=== PATIENT | female | born 1965 | race Caucasian/White ===

== ENCOUNTER → 2016-11-13 | Outpatient (CLI) | payer BC ==
--- NOTE | 2016-11-13 08:08 | CT ---
EXAMINATION TYPE: CT cervical spine wo con DATE OF EXAM: 11/13/2016 COMPARISON: Cervical spine radiographs dated 09/07/2009 HISTORY: Cervical radiculopathy on the right side for 2 months with no known injury and history of fu vinay CT DLP: 684.6 mGycm. Automated Exposure Control for Dose Reduction was Utilized. TECHNIQUE: CT scan of the cervical spine is obtained without contrast, axial images are obtained, sa gittal and coronal reformatted images are also reviewed. FINDINGS: Anterior cervical fusion has been performed of C5-7 with subsequent osseous fusion of the i ntervertebral disc spaces and disc space are seen. Heterotopic ossification is seen posterior to the spinous processes at this level. Few protuberant osteophytes project posteriorly at these levels mild ly narrow the spinal canal. Multilevel facet arthropathy and uncovertebral hypertrophy are seen resulting in mild left neural for aminal narrowing at C3-C4 and bilateral mild neural foraminal narrowing at C5-C6. The remaining neura l foramen appear patent. Small central disc osteophyte complex is seen at C2-C3 without spinal canal stenosis. Cervical spine is visualized in its entirety from C1 through upper thoracic levels, demonst rates satisfactory alignment without evidence of acute fracture or dislocation. Prevertebral soft ti ssue appears within normal limits. The C1-C2 articulation is within normal limits on the coronal apolinar ges. Thyroid gland is felt within normal limits. Visualized lung apices are clear. IMPRESSION: 1. Postsurgical change of C5-7 with protuberant posterior osteophytes creating mild spinal canal sten osis at these levels. 2. Multilevel degenerative disc disease, uncovertebral hypertrophy and facet arthropathy resulting in mild left neural foraminal narrowing at C3-C4 and bilateral mild neural foraminal narrowing at C5-C6 . 3.There is no acute fracture or dislocation evident in the cervical spine.
== END | disposition home or self-care (01) ==
LOC: RADCTMAIN 07:33
PROVIDERS: ATTEND Family Medicine
DX: M48.02 Spinal stenosis, cervical region (principal); M50.10 Cervical disc disorder with radiculopathy, unspecified cervical region; M46.82 Other specified inflammatory spondylopathies, cervical region; M99.71 Connective tissue and disc stenosis of intervertebral foramina of cervical region; M47.22 Other spondylosis with radiculopathy, cervical region; Z98.890 Other specified postprocedural states
CPT/HCPCS: 72125

== ENCOUNTER 2016-12-04 05:54 | Day surgery (SDC) | payer BC ==
[2016-12-01 13:16] VITALS: BMI 31.6
[~2016-12-04 05:54] MED LIST: DEXAMETHASONE SOD PHOSPHATE 10 MG/ML 1 ML VIAL IV ONE; LACTATED RINGERS 1,000 ML IV SCH; MIDAZOLAM 2 MG/2 ML VIAL IV PRN; ONDANSETRON 4 MG/2 ML VIAL IVP ONE; SCOPOLAMINE 1.5MG/72HR PATCH TRANSDERM ONE; ceFAZolin 2 GM in SODIUM CHLORIDE 0.9% 100 ML IVPB ONE
[2016-12-04] MEDS ORDERED: LIDOCAINE 1% 20 ML VIAL (10MG/ML) FOR IV START INTRADERMA ONE (06:47)
[2016-12-04] MEDS ORDERED: fentaNYL (PF) 50 MCG/ML 2 ML AMP ONE (07:46)
[2016-12-04] MEDS ORDERED: MIDAZOLAM 2 MG/2 ML VIAL ONE (07:46)
[2016-12-04] MEDS ORDERED: GLYCOPYRROLATE 0.2 MG/ML 2 ML VIAL ONE (07:46)
[2016-12-04] MEDS ORDERED: ROCURONIUM BROMIDE 10 MG/ML 10 ML VIAL IV ONE (07:46)
[2016-12-04] MEDS ORDERED: PROPOFOL 10 MG/ML 20 ML VIAL IV ONE (07:46)
[2016-12-04] MEDS ORDERED: ePHEDrine SULFATE/0.9% NACL/PF 50 MG/5 ML SYRINGE IV ONE (07:46)
[2016-12-04] MEDS ORDERED: NEOSTIGMINE 1 MG/ML 10 ML VIAL ONE (07:46)
[2016-12-04] MEDS ORDERED: SUCCINYLCHOLINE CHLORIDE 100 MG/5 ML SYR IV ONE (07:46)
[2016-12-04] MEDS ORDERED: ceFAZolin 1,000 MG in SODIUM CHLORIDE 0.9% 1,000 ML IRRIGATION ONE (08:09)
--- NOTE | 2016-12-04 09:17 | FL ---
EXAMINATION TYPE: FL guidance operating room, XR ankle limited LT DATE OF EXAM: 12/04/2016 CLINICAL HISTORY: Left ankle fracture. TECHNIQUE: Fluoroscopy. Intraoperative limited views left ankle COMPARISON: None. FINDINGS: Fluoroscopic guidance was provided during open reduction internal fixation procedure perfo rmed by Dr. Quinn. A total of 17 seconds of fluoroscopic time was utilized during the procedure and four spot intraoperative images are acquired. Images acquired show placement of lateral fixating plate with multiple screws and additional fixating screw through fracture deformity lateral malleolus. Satisfactory alignment is seen on intraoperative images provided after reduction and fixation. IMPRESSION: As Above.
[2016-12-04] MEDS: HYDROmorphone 0.5 MG/0.5 ML SYRINGE IVP PRN ×4 (09:20→09:40)
[2016-12-04 09:29] VITALS: TEMP 97.4
[2016-12-04] MEDS ORDERED: ONDANSETRON 4 MG/2 ML VIAL IVP ONE (09:38)
[2016-12-04] MEDS ORDERED: KETOROLAC 30 MG/ML 1 ML VIAL IVP ONE (09:39)
[2016-12-04] MEDS ORDERED: HYDROcodone/APAP 7.5-325MG 1 EACH TAB PO ONE (11:10)
[2016-12-04 11:40] VITALS: BP 122/79; PULSE 69; RESP 18
--- NOTE | 2016-12-04 12:26 | P.OP ---
Date of Procedure: 12/04/16 Procedure(s) Performed: left ankle eua and orif distal fibula fracture arthrex 1 interfrag screw 4 distal locking screws 3 proximal 3.5 cortical screws no comp ebl 5 cc tourniquet 35 min PREOPERATIVE DIAGNOSES: Left ankle lateral malleolus fracture, Ennis B bimalleolar equivalent fracture POSTOPERATIVE DIAGNOSES: Left ankle lateral malleolus fracture, Ennis B bimalleolar equivalent PROCEDURES PERFORMED: 1. Left ankle lateral malleolus fracture open reduction and internal fixation 2. 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 TOURNIQUET: approximately 30 minutes DISPOSITION: To post-anesthesia care unit INDICATIONS: The patient is a 51 year old female with a history of left ankle fracture approximately 12 ago, who presents to the operating room today for examination of the ankle under anesthesia with manipulation and possible fixation of ankle fracture. The fracture appears to be a bimalleolar equivalent fracture, with likely rupture of the deltoid ligament (or small evulsion ciara of medial malleolus) and a fracture of the lateral malleolus that is high enough to produce talar instability. I have discussed these issues with the patient, who wishes to proceed with the operative plan. I have explained the details of this surgery thoroughly and also explained the potential risks and complications. These are inclusive of, but not limited to: bleeding, infection, scarring, discomfort, blood vessel and nerve damage, stiffness, weakness, need for further surgery, failure to relieve symptoms, persistence or worsening of problems, , and other risks. The patient is aware of these risks and agrees to proceed with surgery. The consent form has been signed. PROCEDURE: After appropriate consent was obtained, the patient was taken to the operating room and placed supine on the operating table. General anesthesia was initiated. The left ankle was examined and manipulated under fluoroscopic examination with a mini-C-arm device. The ankle was noted to be unstable, as evidenced by lateral talar shift of approximately 3-4 mm with external rotation force on the foot. The lateral malleolus fracture was also noted to be displaced by 4-5 mm on the lateral view, especially. The limb was prepped and draped in the usual aseptic fashion with ChloraPrep, and the patient was given IV antibiotics. The tourniquet was then inflated to 350 mmHg after careful exsanguination of the limb. Time out was called, confirming patient identity, side, procedure, and administration of antibiotics. Incision was created laterally, centered over the fracture site, for a length of approximately 4 inches. The incision was carried down through skin and into subcutaneous tissues, and blunt dissection then proceeded down to fascia. Fascia was split in line with the incision and the peroneal muscles were retracted posteriorly. The fracture site was exposed with subperiosteal dissection for as much exposure of the bone as was necessary. Fracture hematoma was evacuated and the interior of the fracture site was meticulously cleansed with irrigation and manual extraction of organizing hematoma and bone debris. The fracture was minimally comminuted and oblique in orientation. The fracture was mobilized using a evangelista elevator and reduction was accomplished using a bone clamp, which was also used to secure the fracture. Anatomic reduction was accomplished. An interfragmentary screw, anterior to posterior, was placed using lag technique. Next, a precontoured fibular plate from [employer] was selected for size and side. The proximal holes were filled with 3 fully threaded 3.5 mm cortical screws with bicortical purchase. Distal holes were filled with 4 2.7 mm locking screws. No evidence of joint penetration on the mini-C-arm views was noted. The fracture was noted to be in anatomic position and stress testing under C- arm imaging showed no significant migration, shift, or tilt of the talus with external rotation stress, hindfoot inversion or eversion. Screw lengths were noted to be appropriate and the incision was then irrigated thoroughly using normal saline. Tourniquet was deflated and hemostasis was obtained using electrocautery. Fascial closure was performed with 0-Vicryl suture, subcutaneous closure with 2-0 Vicryl suture. Skin was closed with carlos. Sterile dressing was applied and well padded, well molded short leg splint was applied with the ankle in neutral. Patient tolerated the procedure well and taken to recovery room in stable condition. Sponge and needle counts were correct.
== END 2016-12-04 11:56 | disposition home or self-care (01) ==
LOC: OR 05:54
PROVIDERS: ATTEND Orthopaedic Surgery
DX: S82.62XA Displaced fracture of lateral malleolus of left fibula, initial encounter for closed fracture (principal); M25.372 Other instability, left ankle; W01.0XXA Fall on same level from slipping, tripping and stumbling without subsequent striking against object, initial encounter; I10 Essential (primary) hypertension; F41.9 Anxiety disorder, unspecified; F17.200 Nicotine dependence, unspecified, uncomplicated; Z79.891 Long term (current) use of opiate analgesic; Z79.899 Other long term (current) drug therapy
CPT/HCPCS: 27792; 81025; 73600; C1713; J2250; J1100; J2710; J0690 ×2; J2405; J3010; J1885; J0330; J2704; J1170

== ENCOUNTER → 2017-07-29 | Outpatient (CLI) | payer BC ==
--- NOTE | 2017-08-02 10:07 | MM ---
Reason for exam: screening (asymptomatic). Physical Findings: A clinical breast exam by your physician is recommended on an annual basis and results should be correlated with mammographic findings. MG 3D Screening Mammo W/Cad Bilateral CC and MLO view(s) were taken. No prior studies available for comparison. There are multiple bilateral mammographic masses that are round/oval and well circumscribed in the upper outer quadrants without prior mammogram ultrasound will be performed to ensure cystic nature. ASSESSMENT: Incomplete: need additional imaging evaluation, BI-RAD 0 RECOMMENDATION: Ultrasound of both breasts. [facility] will attempt to contact patient to return for ultrasound.
== END | disposition home or self-care (01) ==
LOC: RADMAMWWP 07:52
PROVIDERS: ATTEND Family Medicine
DX: Z12.31 Encounter for screening mammogram for malignant neoplasm of breast (principal)
CPT/HCPCS: 77063; 77067

== ENCOUNTER → 2017-08-17 | Outpatient (CLI) | payer BC ==
--- NOTE | 2017-08-17 09:01 | USB ---
Reason for exam: additional evaluation requested from abnormal screening. Physical Findings: Nurse did not find any significant physical abnormalities on exam. US Breast Workup Limited BJ Right limited breast ultrasound including focal area of concern, retroareolar and axilla demonstrates ductal ectasia at 9 o'clock and 10 o'clock and a 0.6 x 0.4 x 0.3cm oval, irregular, complex cystic lesion at 11 o'clock. Left limited breast ultrasound including focal area of concern, retroareolar and axilla demonstrates ductal ectasia at 3 o'clock, a 0.4 x 0.3 x 0.2cm oval, cystic lesion at 2 o'clock and a 1.1 x 0.8 x 0.5cm oval, hypoechoic lesion at 3-3:30 for which a biopsy is recommended. These results were verbally communicated with the patient and result sheet given to the patient on 08/17/17. ASSESSMENT: Suspicious, BI-RAD 4 RECOMMENDATION: Ultrasound core biopsy of the left breast. Called with mammographic findings and has scheduled an appointment for the patient for 08/19/17 at 8:[address] Soliz. PRELIMINARY REPORT CALLED AND FAXED TO DR. SOLIZ ON 08/17/17.
== END | disposition home or self-care (01) ==
LOC: RADUSWWP 07:01
PROVIDERS: ATTEND Family Medicine
DX: R92.8 Other abnormal and inconclusive findings on diagnostic imaging of breast (principal)

== ENCOUNTER → 2017-09-13 | Day surgery (SDC) | payer BC ==
[2017-09-13 11:29] VITALS: RESP 16; BMI 35.4
[2017-09-13 13:16] VITALS: BP 152/87; PULSE 78; TEMP 98.1
--- NOTE | 2017-09-13 15:04 | USB ---
EXAMINATION TYPE: US biopsy breast VAD LT, Postprocedure MG diagnostic mammo LT wo CAD DATE OF EXAM: 09/13/2017 CLINICAL HISTORY: 52-year-old female R92.8 abnormal mammogram. TECHNIQUE: Ultrasound guided core biopsy of the left breast. COMPARISON: 08/17/2017 and 07/29/2017 FINDINGS: The procedure of ultrasound guided core biopsy was explained to the patient. Benefits, alternatives, and risks were discussed. An informed consent was then obtained. The patient was placed in supine positioning for imaging and for the procedure. The 3:00 ovoid lesion was identified measuring 1.2 x 0.6 cm. The overlying skin was prepped and draped in usual sterile fashion. Lidocaine buffered with bicarbonate was used as anesthetic into the skin and subcutaneous tissue up to area of concern in the left breast. Under ultrasound guidance, a 13-gauge assisted mammotome Elite biopsy gun device was used to obtain 6 core samples. Following this, a ribbon clip was left in lesion. The patient tolerated the procedure well without any immediate complication. The patient was kept in the radiology department for short stay after the procedure and then discharged home in stable condition. Post procedure mammogram shows ribbon clip in appropriate position at the 2-3 o' clock site of previously seen mammographic mass. IMPRESSION: Successful, uncomplicated ultrasound guided core biopsy of area of concern in the left breast, full pathology results to follow. Benign etiology is favored. Pathology Results: Benign BREAST, LEFT, 3:00, ULTRASOUND GUIDED CORE BIOPSY: Fibroadenoma. Background fibrocystic changes including cysts and apocrine metaplasia. Recommendation Follow up ultrasound of the left breast in 6 months. SAMUEL
== END | disposition home or self-care (01) ==
LOC: RADUSWWP 11:02
PROVIDERS: ATTEND Surgery Plastic and Reconstructive Surgery
DX: D24.2 Benign neoplasm of left breast (principal); N60.02 Solitary cyst of left breast; N60.82 Other benign mammary dysplasias of left breast
CPT/HCPCS: 19083; 88305; 77065; A4648; J2001

== ENCOUNTER → 2020-01-29 | Outpatient (CLI) | payer OTHER ==
--- NOTE | 2020-01-29 09:56 | MM ---
Reason for exam: additional evaluation requested from prior study. Last mammogram was performed 2 years and 4 months ago. History: Patient is nulliparous. Benign US biopsy breast VAD LT of the left breast, September 13, 2017. Took other hormone for 1 year 1 month. Physical Findings: Nurse did not find any significant physical abnormalities on exam. MG 3D Diag Mammo W/Cad JB Bilateral CC and MLO view(s) were taken. Prior study comparison: September 13, 2017, left breast MG diagnostic mammo LT wo CAD. July 29, 2017, bilateral MG 3d screening mammo w/cad. There are scattered fibroglandular densities. Previous mammotome biopsy in the left breast. There is chronic nodularity bilaterally. Lateral anterior asymmetric density is more defined. These results were verbally communicated with the patient and result sheet given to the patient on 01/29/20. ASSESSMENT: Incomplete: need additional imaging evaluation, BI-RAD 0 RECOMMENDATION: Ultrasound of the right breast. (8-12 o'clock)
--- NOTE | 2020-01-29 09:58 | USB ---
Reason for exam: additional evaluation requested from abnormal screening. History: Patient is nulliparous. Benign US biopsy breast VAD LT of the left breast, September 13, 2017. Took other hormone for 1 year 1 month. US Breast Limited RT Right limited breast ultrasound including focal area of concern, retroareolar and axilla demonstrates a 0.4 x 0.3 x 0.4cm cystic lesion at 11 o'clock. Some scattered duct ectasia also noted. 6 month follow up mammogram recommended. Scanned 8-12 o'clock. These results were verbally communicated with the patient and result sheet given to the patient on 01/29/20. ASSESSMENT: Probably benign, BI-RAD 3 RECOMMENDATION: Follow-up diagnostic mammogram of the right breast in 6 months.
== END | disposition home or self-care (01) ==
LOC: RADMAMWWP 07:15
PROVIDERS: ATTEND Family Medicine
DX: R92.8 Other abnormal and inconclusive findings on diagnostic imaging of breast (principal)
CPT/HCPCS: 77066; 76642; G0279; 77062

== ENCOUNTER → 2021-05-02 | Outpatient (CLI) | payer OTHER ==
--- NOTE | 2021-05-02 15:10 | MM ---
Reason for exam: additional evaluation requested from prior study. Last mammogram was performed 1 year and 3 months ago. History: Patient is postmenopausal and is nulliparous. Benign US biopsy breast VAD LT of the left breast, September 13, 2017. Took other hormone for 1 year 1 month. Physical Findings: A clinical breast exam by your physician is recommended on an annual basis and results should be correlated with mammographic findings. MG 3D Diag Mammo W/Cad BJ Bilateral CC and MLO view(s) were taken. Prior study comparison: January 29, 2020, bilateral MG 3d diag mammo w/cad BJ. September 13, 2017, left breast MG diagnostic mammo LT wo CAD. The breast tissue is heterogeneously dense. This may lower the sensitivity of mammography. There is chronic nodularity bilaterally. There is no dominant lesion. No significant new findings when compared with previous films. These results were verbally communicated with the patient and result sheet given to the patient on 05/02/21. ASSESSMENT: Benign, BI-RAD 2 RECOMMENDATION: Routine screening mammogram of both breasts in 1 year.
== END | disposition home or self-care (01) ==
LOC: RADMAMWWP 14:17
PROVIDERS: ATTEND Family Medicine
DX: R92.8 Other abnormal and inconclusive findings on diagnostic imaging of breast (principal); Z78.0 Asymptomatic menopausal state
CPT/HCPCS: 77066; G0279; 77062

== ENCOUNTER → 2024-06-23 | Outpatient (CLI) | payer OTHER ==
--- NOTE | 2024-06-26 07:29 | MM ---
Reason for Exam: Screening (asymptomatic). Last mammogram was performed 3 year(s) and 1 month(s) ago. Patient History: Menarche at age 11. Patient has no children. Postmenopausal. 09/13/2017, Benign Core Biopsy on the left side. Risk Values: Leonor 5 year model risk: 1.9%. NCI Lifetime model risk: 11.1%. Prior Study Comparison: 09/13/2017 Left Diagnostic Mammogram, [facility]. 01/29/2020 Bilateral Diagnostic Mammogram, [facility]. 05/02/2021 Bilateral Diagnostic Mammogram, [facility]. Tissue Density: The breasts are heterogeneously dense, which may obscure small masses. Findings: Analyzed By CAD. There are loosely grouped benign-appearing round and linear calcifications in the right breast redemonstrated. Mammotome biopsy clip in the left breast is again seen. No suspicious new mass or distortion in either breast. Overall Assessment: Benign, BI-RAD 2 Management: Screening Mammogram of both breasts in 1 year. . Patient should continue monthly self-breast exams. A clinical breast exam by your physician is recommended on an annual basis. This exam should not preclude additional follow-up of suspicious palpable abnormalities. Note on Leonor scores and lifetime risk: 1. A Leonor score greater than 3% is considered moderate risk. If this is the case, consider specialist referral to assess eligibility for a risk reducing agent. 2. If overall lifetime risk for the development of breast cancer is 20% or higher, the patient may qualify for future screening with alternating mammogram and breast MRI. [facility], , 06/26/2024 7:25 AM. Electronically signed and approved by: Joss Mondragon M.D.
== END | disposition home or self-care (01) ==
LOC: RADMAMWWP 15:38
PROVIDERS: ATTEND Family Medicine
DX: Z12.31 Encounter for screening mammogram for malignant neoplasm of breast (principal); R92.333 Mammographic heterogeneous density, bilateral breasts; R92.1 Mammographic calcification found on diagnostic imaging of breast; Z78.0 Asymptomatic menopausal state
CPT/HCPCS: 77063; 77067